=== PATIENT | female | born 1995 | race Two or more races ===

== ENCOUNTER 2017-07-06 18:35 | Emergency (ER) | payer SELFPAY ==
[2017-07-06 18:44] VITALS: BP 142/84
[2017-07-06] MEDS ORDERED: LIDOCAINE 2% VISCOUS SOLN 20 ML UDCUP PO ONE (18:55)
--- NOTE | 2017-07-06 19:00 | ER Document Report ---
HPI - HPI Pain Level: 4 Notes: Patient is a 20-year-old female no significant past medical history presents to the ED complaining of dental pain #8 #91 week. Patient states that she may have had cavities in the area and she used a person who stated he was a dentist , but they are not sure if he really knows what he was doing as they did not get seen at a dental office and she has continued pain. Patient is still able to eat and drink, but does have a decreased p.o. intake due to pain with pressure applied to the teeth. She has not noticed any obvious abscess or purulent discharge. She denies any drug allergies, smoking, IV drug use. Denies any headache, fever, head injury, neck pain, drooling, hoarseness, URI, sore throat, chest pain, palpitations, syncope, cough, shortness of breath, wheeze, dyspnea, abdominal pain, nausea/vomiting/diarrhea, urinary retention, dysuria, hematuria, or rash. - ROS Systems Reviewed and Negative: Yes All other systems reviewed and negative Past Medical History - Social History Smoking Status: Never Smoker Family History: Reviewed & Not Pertinent Vertical Provider Document - CONSTITUTIONAL Agree With Documented VS: Yes Notes: PHYSICAL EXAMINATION: GENERAL: Well-appearing, well-nourished and in no acute distress. HEAD: Atraumatic, normocephalic. EYES: Pupils equal round and reactive to light, extraocular movements intact, sclera anicteric, conjunctiva are normal. ENT: Nares patent and without discharge. oropharynx clear without exudates. No tonsilar hypertrophy or erythema. Moist mucous membranes. Uvula midline. No palatine shift. No tongue protrusion. No respiratory compromise. Mouth: mild gingivitis. No obvious abscess or discharge noted. No facial swelling. + tenderness to tooth #8/9. there is a cement appearing material between the teeth. NECK: Normal range of motion, supple without lymphadenopathy. No rigidity/ meningismus. LUNGS: Breath sounds clear to auscultation bilaterally and equal. No wheezes rales or rhonchi. HEART: Regular rate and rhythm without murmurs, rubs, gallops. NEUROLOGICAL: Cranial nerves grossly intact. Normal speech, normal gait. PSYCH: Normal mood, normal affect. SKIN: Warm, Dry, normal turgor, no rashes or lesions noted. Course - Re-evaluation Re-evalutation: 07/06/17 18:58 Patient is an afebrile, well-hydrated, 22-year-old female who presents to the ED with dental pain to #8 and 9, suspect nerve root etiology versus infection. Vitals are acceptable. PE is otherwise unremarkable. No I&D, labs, or imaging warranted at this time based on H&P. Viscous lidocaine dispensed today. I will send her home with a prescription for penicillin. Low suspicion for any meningitis, sepsis, peritonsillar/pharyngeal abscess, respiratory compromise, Bravo's, temporal arteritis, or other emergent systemic condition at this time. Patient is aware this condition can change from initial presentation and she needs to monitor symptoms closely. Conservative measures otherwise for symptoms. Call to schedule an appointment with a dentist for further evaluation and management. Recheck with your PCM this week as well. Return to the ED with any worsening/concerning symptoms otherwise as reviewed in discharge. Patient is in agreement. - Vital Signs Vital signs: Temp Pulse Resp BP Pulse Ox 98.1 F 57 L 16 142/84 H 100 07/06/17 18:42 07/06/17 18:42 07/06/17 18:42 07/06/17 18:42 07/06/17 18:42 Discharge - Discharge Clinical Impression: Pain, dental Condition: Stable Disposition: HOME, SELF-CARE Instructions: Toothache ([facility]), Penicillin V K ([facility]), Dentist Additional Instructions: [place] and floss twice daily Maintain fluid intake Take antibiotics as directed Mouthwash, salt water gargles, peroxide rinse as needed Tylenol/ibuprofen as needed Recheck with PCM this week Call today/tomorrow and schedule an appointment with your dentist for further evaluation Return to the ED with any worsening symptoms and/or development of fever, headache, facial swelling, swelling of lips/tongue/throat, trouble swallowing, drooling, hoarseness, neck pain/stiffness, chest pain, palpitations, syncope, shortness of breath, trouble breathing, abdominal pain, n/v/d, numbness/tingling , or other worsening symptoms that are concerning to you. Prescriptions: Penicillin V Potassium [Penicillin Vk 250 mg Tablet] 500 mg PO BID #40 tablet Forms: Elevated Blood Pressure Referrals: [facility] [Provider Group] - Follow up in 3-5 days
== END 2017-07-06 19:10 | disposition home or self-care (01) ==
LOC: ER 18:35
DX: K08.9 Disorder of teeth and supporting structures, unspecified (principal)
CPT/HCPCS: 99282; J3490

== ENCOUNTER 2019-11-18 18:31 | Emergency (ER) | payer SELFPAY ==
--- NOTE | 2019-11-18 20:17 | ER Document Report ---
ED Medical Screen (RME) - General Chief Complaint: Abdominal Pain Stated Complaint: ABDOMINAL PAIN Time Seen by Provider: 11/18/19 19:52 - HPI Notes: 11/18/19 20:15 24-year-old female who only speaks Barbadian, G0, P0 presents to the emergency room for 1 week of periumbilical pain that is worse with movement, gets relieved with ibuprofen, not reproducible on palpation described as cramping for the last week. 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 Patient also states her last menstrual cycle was October 15, 2019, she is sexually active and she is concerned that she may be . Denies any vaginal bleeding or discharge. Denies any nausea vomiting diarrhea, chest pain, shortness of breath, fevers or chills I have greeted and performed a rapid initial assessment of this patient. A comprehensive ED assessment and evaluation of the patient, analysis of test results and completion of the medical decision making process will be conducted by additional ED providers. PHYSICAL EXAMINATION: GENERAL: Well-appearing, well-nourished and in no acute distress. CV: s1, s2 regular LUNGS: No respiratory distress abd: no tenderness appreciated on palpation, no distention. no rebound tenderness. no cva tenderness appreciated bilaterally Musculoskeletal: Normal range of motion NEUROLOGICAL: Normal speech, normal gait. SKIN: Warm, Dry, normal turgor, no rashes or lesions noted. This exam was used with the help of [employer] environmental health officer - Related Data Allergies/Adverse Reactions: No Known Allergies Allergy (Unverified 07/06/17 18:37) Past Medical History Renal/ Medical History: Denies: Hx Peritoneal Dialysis Physical Exam - Vital signs Vitals: Temp Pulse Resp BP Pulse Ox 98.9 F 98 16 130/59 H 100 11/18/19 18:44 11/18/19 18:44 11/18/19 18:44 11/18/19 18:44 11/18/19 18:44 Course - Vital Signs Vital signs: Temp Pulse Resp BP Pulse Ox 98.9 F 98 16 130/59 H 100 11/18/19 18:44 11/18/19 18:44 11/18/19 18:44 11/18/19 18:44 11/18/19 18:44
[2019-11-18 20:38] LABS: ABSOLUTE LYMPHOCYTES (AUTO) 1.2 10^3/uL (0.5-4.7); ABSOLUTE MONOCYTES (AUTO) 0.3 10^3/uL (0.1-1.4); ABSOLUTE NEUT (AUTO) 4.5 10^3/uL (1.7-8.2); BASOPHILS % (AUTO) 0.7 % (0-2); EOSINOPHILS % (AUTO) 0.6 % (0-6); HEMATOCRIT 36.3 % (36.0-47.0); HEMOGLOBIN 12.8 g/dL (12.0-15.5); LYMPHOCYTES % (AUTO) 19.5 % (13-45); MEAN CORPUSCULAR HEMOGLOBIN 31.5 pg (27.0-33.4); MEAN CORPUSCULAR HGB CONC 35.4 g/dL (32.0-36.0); MEAN CORPUSCULAR VOLUME 89 fl (80-97); PLATELET COUNT 238 10^3/uL (150-450); RED BLOOD COUNT 4.08 10^6/uL (3.72-5.28); RED CELL DISTRIBUTION WIDTH 13.2 % (11.5-14.0); SEGMENTED NEUTROPHILS % (AUTO) 74.2 % (42-78); TOTAL CELLS COUNTED % (AUTO) 100 %; WHITE BLOOD COUNT 6.1 10^3/uL (4.0-10.5)
[2019-11-18 20:49] LABS: APPEARANCE,URINE CLEAR; BILIRUBIN,URINE NEGATIVE (NEGATIVE); COLOR,URINE STRAW; GLUCOSE, URINE NEGATIVE (NEGATIVE); KETONES,URINE NEGATIVE (NEGATIVE); LEUKOCYTE ESTERASE,URINE NEGATIVE (NEGATIVE); NITRITE,URINE NEGATIVE (NEGATIVE); PROTEIN,URINE NEGATIVE (NEGATIVE); URINE SPECIFIC GRAVITY 1.006; UROBILINOGEN,URINE NEGATIVE mg/dL (<2.0)
[2019-11-18 20:57] LABS: ALBUMIN 4.6 g/dL (3.5-5.0); ALKALINE PHOSPHATASE 83 U/L (38-126); ANION GAP 11 (5-19); ASPARTATE AMINO TRANSFERASE 27 U/L (14-36); BILIRUBIN,DIRECT 0.2 mg/dL (0.0-0.4); BILIRUBIN,TOTAL 0.3 mg/dL (0.2-1.3); BLOOD UREA NITROGEN 12 mg/dL (7-20); CALCIUM 9.5 mg/dL (8.4-10.2); CARBON DIOXIDE 24 mmol/L (22-30); CHLORIDE 106 mmol/L (98-107); GLUCOSE 109 mg/dL (75-110); POTASSIUM 4.2 mmol/L (3.6-5.0); TOTAL PROTEIN 7.8 g/dL (6.3-8.2)
--- NOTE | 2019-11-18 21:20 | RADIOLOGY REPORT (SQ) ---
EXAM DESCRIPTION: US ABDOMEN LIMITED COMPLETED DATE/TME: 11/18/2019 20:14 CLINICAL HISTORY: 24 years, Female, umbilical pain x1w,no n/v/d, pls check appendix COMPARISON: None. TECHNIQUE: LIMITATIONS: None. FINDINGS: There is a questionable tubular structure in the right lower quadrant, possibly the appendix, measuring 7.7 mm in maximal diameter. There is a 3.1 cm complex right ovarian cyst, probably a hemorrhagic cyst. No free fluid. IMPRESSION: Questionable prominent appendix. A CT of the abdomen and pelvis is recommended to exclude the possibility of appendicitis. 3.1 cm hemorrhagic ovarian cyst. No follow-up imaging is recommended. Reference: Radiology 2010 Sep;256(3):683-75 copyright 2011 [employer]- All Rights Reserved
--- NOTE | 2019-11-19 06:54 | ER Document Report ---
Entered by COLLIN LOVE SCRIBE 11/19/19 0631 Acting as scribe for:APOLONIA RAMEY MD ED GI/ - General Chief Complaint: Abdominal Pain Stated Complaint: ABDOMINAL PAIN Time Seen by Provider: 11/18/19 19:52 Mode of Arrival: Ambulatory Information source: Patient Notes: This 24 year old Turkish-speaking female patient with no significant past medical history presents to the ED today with complaints of periumbilical pain for the past x1 week that has been constant in nature. Denies any relieving or ameliorating factors. She states that her last menstrual period started on 10/12. Denies fever. Denies any past surgical history, allergies, medications, or use of ETOH, tobacco, or recreational drugs. HPI was relayed using a [employer]. - Related Data Allergies/Adverse Reactions: No Known Allergies Allergy (Unverified 07/06/17 18:37) Past Medical History - General Information source: Patient - Social History Smoking Status: Never Smoker Cigarette use (# per day): No Chew tobacco use (# tins/day): No Smoking Education Provided: No Frequency of alcohol use: None Drug Abuse: None Family History: Reviewed & Not Pertinent Review of Systems - Review of Systems Constitutional: See HPI. denies: Fever EENT: No symptoms reported Cardiovascular: No symptoms reported Respiratory: No symptoms reported Gastrointestinal: See HPI, Abdominal pain Genitourinary: No symptoms reported Female Genitourinary: See HPI, Last menstrual period - 10/13/2019 Musculoskeletal: No symptoms reported Skin: No symptoms reported Hematologic/Lymphatic: No symptoms reported Neurological/Psychological: No symptoms reported -: Yes All other systems reviewed and negative Physical Exam - Vital signs Vitals: Temp Pulse Resp BP Pulse Ox 98.9 F 98 16 130/59 H 100 11/18/19 18:44 11/18/19 18:44 11/18/19 18:44 11/18/19 18:44 11/18/19 18:44 - General General appearance: Appears well, Alert In distress: None - HEENT Head: Normocephalic, Atraumatic Eyes: Normal Pupils: PERRL - Respiratory Respiratory status: No respiratory distress Chest status: Nontender Breath sounds: Normal Chest palpation: Normal - Cardiovascular Rhythm: Regular Heart sounds: Normal auscultation Murmur: No Friction rub: No Gallop: None auscultated - Abdominal Inspection: Normal Distension: No distension Bowel sounds: Normal Tenderness: Tender - Bilateral lower quadrant tenderness to palpation, worse on the right Organomegaly: No organomegaly - Back Back: Normal, Nontender - Extremities General upper extremity: Normal inspection General lower extremity: Normal inspection. No: Edema - Neurological Neuro grossly intact: Yes Orientation: AAOx4 [place] Coma Scale Eye Opening: Spontaneous [place] Coma Scale Verbal: Oriented [place] Coma Scale Motor: Obeys Commands Ananya Coma Scale Total: 15 - Psychological Associated symptoms: Normal affect, Normal mood - Skin Skin Temperature: Warm Skin Moisture: Dry Skin Color: Normal Course - Vital Signs Vital signs: Temp Pulse Resp BP Pulse Ox 97.8 F 61 16 116/77 100 11/19/19 07:07 11/19/19 07:07 11/19/19 07:07 11/19/19 07:07 11/19/19 07:07 - Laboratory Result Diagrams: 11/18/19 20:26 11/18/19 20:26 - Diagnostic Test Radiology reviewed: Image reviewed, Reports reviewed - Ultrasound showed a right 3.1 cm hemorrhagic ovarian cyst, and appendix measuring 7.[address] maximum diameter[address] scan with IV contrast was done again showing the right hemorrhagic ovarian cyst, and a normal appendix. Discharge - Discharge Clinical Impression: Hemorrhagic cyst of right ovary Condition: Stable Disposition: HOME, SELF-CARE Additional Instructions: Ovarian Cyst Your examination shows the presence of an ovarian cyst. This is a ball of fluid attached to the ovary. Ovarian cysts in women of child-bearing age are usually innocent. However, the cyst may cause pain when it grows or bursts. An innocent ovarian cyst will usually go away by itself. When the cyst becomes painful, you should rest. Pain medication may be required. Some women find a hot water bottle soothing. The pain usually resolves within one or two days. After menopause, an ovarian cyst may mean a tumor, and requires more aggressive evaluation -- usually surgery is recommended to remove or biopsy the cyst. A very large cyst requires evaluation at any age. Most cysts (even the innocent ones) require follow-up examination. Call the doctor or return at any time if the pain increases significantly, if you become faint, or if you experience vaginal bleeding. You have a large cyst on your right ovary which has some bleeding into the cyst. This is called a hemorrhagic ovarian cyst. They can be quite painful at times. The usual treatment is rest. You should take ibuprofen 600 mg every 6-8 hours along with Tylenol 650 mg every 4 hours to help control your pain. Take the pain medication as dispensed today if needed. Follow-up with [facility] for recheck in a few days. RETURN TO THE EMERGENCY ROOM IF ANY NEW OR WORSENING SYMPTOMS. Referrals: [facility] [Provider Group] - Follow up in 3-5 days I personally performed the services described in the documentation, reviewed and edited the documentation which was dictated to the scribe in my presence, and it accurately records my words and actions.
--- NOTE | 2019-11-19 09:15 | RADIOLOGY REPORT (SQ) ---
EXAM DESCRIPTION: CT ABD/PELVIS WITH IV ONLY IMAGES COMPLETED DATE/TIME: 11/19/2019 8:27 am REASON FOR STUDY: Dilated appy on US w/ RLQ pain and R ovry cyst COMPARISON: 11/18/2019 TECHNIQUE: CT scan of the abdomen and pelvis performed using helical scanning technique with dynamic intravenous contrast injection. No oral contrast. Images reviewed with lung, soft tissue, and bone windows. Reconstructed coronal and sagittal MPR images reviewed. Delayed images for evaluation of the urinary system also acquired. All images stored on PACS. All CT scanners at this facility use dose modulation, iterative reconstruction, and/or weight based d osing when appropriate to reduce radiation dose to as low as reasonably achievable (ALARA). [facility]: Dose Right [facility]: CareDose [facility]: Dose Right [facility]: Teradose 4D [facility]: [employer] CONTRAST TYPE AND DOSE: contrast/concentration: Isovue 350.00 mmol/ml; Total Contrast Delivered: 53. 0 ml; Total Saline Delivered: 64.9 ml RENAL FUNCTION: BUN 12; creatinine 0.56 RADIATION DOSE: CT Rad equipment meets quality standard of care and radiation dose reduction techniq ues were employed. CTDIvol: 4.8 mGy. DLP: 494 mGy-cm.. LIMITATIONS: None. FINDINGS: LOWER CHEST: No significant findings. No nodules or infiltrates. LIVER: Normal size. No masses. No dilated ducts. SPLEEN: Normal size. No focal lesions. PANCREAS: No masses. No significant calcifications. No adjacent inflammation or peripancreatic fluid collections. Pancreatic duct not dilated. GALLBLADDER: No identified stones by CT criteria. No inflammatory changes to suggest cholecystitis. ADRENAL GLANDS: No significant masses or asymmetry. RIGHT KIDNEY AND URETER: No solid masses. No significant calcifications. No hydronephrosis or hyd roureter. LEFT KIDNEY AND URETER: No solid masses. No significant calcifications. No hydronephrosis or hydr oureter. AORTA AND VESSELS: No aneurysm. No dissection. Renal arteries, SMA, celiac without stenosis. RETROPERITONEUM: No retroperitoneal adenopathy, hemorrhage or masses. BOWEL AND PERITONEAL CAVITY: No masses or inflammatory changes. No free fluid or peritoneal masses. APPENDIX: Normal. PELVIS: Re- demonstration of a previously characterized cystic lesion within the right ovary. Trace physiologic free fluid is seen within the pelvic cul-de-sac. No pelvic masses. ABDOMINAL WALL: No masses. No hernias. BONES: No significant or acute findings. Incidental note is made of normal variant limbus vertebra, L5. OTHER: No other significant finding. IMPRESSION: No evidence of acute intra-abdominal infectious/inflammatory process. Specifically, nor mal CT appearance of the appendix and no right lower quadrant inflammatory changes. Re- demonstratio n of a previously characterized hemorrhagic cyst within the right ovary. TECHNICAL DOCUMENTATION: JOB ID: [id number] Quality ID # [id number]: Final reports with documentation of one or more dose reduction techniques (e.g., Au tomated exposure control, adjustment of the mA and/or kV according to patient size, use of iterative reconstruction technique) 2010 [employer]- All Rights Reserved Reading location - IP/workstation name: [email or web address]
[2019-11-19] MEDS ORDERED: HYDROCODONE/ACETAMINOPHEN 5-325 MG (6 TAB/ER DISP) PO PRN (09:52)
[2019-11-19] MEDS ORDERED: NAPROXEN 375 MG TABLET PO ONE (09:52)
[2019-11-19 10:17] VITALS: BP 113/62
== END 2019-11-19 10:10 | disposition home or self-care (01) ==
LOC: ER 18:31
DX: N83.201 Unspecified ovarian cyst, right side (principal); R10.33 Periumbilical pain
CPT/HCPCS: 99285; 36415; 83690; 84703; 85025; 81025; 80053; 81001; 76705; 74177; J3490